=== PATIENT | male | born 1940 | race Caucasian/White ===

== ENCOUNTER 2017-07-23 08:51 | Inpatient (IN) | payer OTHER ==
[~2017-07-23] VITALS: Ht 180.3 cm; Wt 86.3 kg
[~2017-07-23 08:51] MED LIST: DOXY100C2 PO
[2017-07-23] MEDS ORDERED: SODIUM CHLORIDE FLUSH 10ML SYR IVF ONE (09:30)
[2017-07-23] MEDS ORDERED: DEXAMETHASONE 4 MG/ML, 5ML ONE (09:44)
[2017-07-23] MEDS ORDERED: DIPHENHYDRAMINE 50 MG/ML, 1ML ONE (09:44)
[2017-07-23 09:51] LABS: HEMATOCRIT 44.5 % (39.2-51.8); WHITE BLOOD COUNT 13.5 x10^3/uL (3.4-10)
[2017-07-23] MEDS ORDERED: DEXAMETHASONE 4 MG/ML, 1ML IVPush ONE (10:00)
[2017-07-23] MEDS ORDERED: DIPHENHYDRAMINE 50 MG/ML, 1ML IVPush ONE (10:00)
[2017-07-23 10:01] LABS: ASPARTATE AMINO TRANSFERASE 27 U/L (15-37); BLOOD UREA NITROGEN 15 mg/dL (7-18)
[2017-07-23 10:12] LABS: PATH.CAST-FLAG NOT PRESENT; SPERM-FLAG NOT PRESENT; SRC-FLAG NOT PRESENT; XTAL-FLAG NOT PRESENT; YLC-FLAG NOT PRESENT
[2017-07-23] MEDS ORDERED: HYDROmorphone 1 MG/ML, 1ML ONE (12:12)
[2017-07-23 12:16] LABS: IS PT STATUS REG ER OR PRE ER? YES
[2017-07-23] MEDS ORDERED: HYDROmorphone 1 MG/ML, 1ML IVPush ONE (12:30)
[2017-07-23] MEDS ORDERED: DIPHENHYDRAMINE 25 MG CAPSULE PO PRN (13:00)
[2017-07-23] MEDS ORDERED: HEPARIN 5,000 UNITS/ML, 1ML ONE (13:31)
[2017-07-23] MEDS: HEPARIN 5,000 UNITS/ML, 1ML SQ SCH ×2 (13:34→22:29)
[2017-07-23] MEDS: MORPHINE SULFATE 4 MG/ML, 1ML IVPush PRN ×3 (15:29→22:30)
[2017-07-23 15:30] VITALS: BP 152/80
[2017-07-23 19:45] VITALS: BP 157/80
[2017-07-23] MEDS ORDERED: DOXYCYCLINE 100MG TABLET PO SCH (21:00)
[2017-07-23] MEDS: NEUTRA PHOS K 250 MG TABLET PO SCH (22:29)
[2017-07-23] MEDS: DIPHENHYDRAMINE 50 MG CAPSULE PO PRN (22:29)
[2017-07-24 04:20] VITALS: BP 130/78
[2017-07-24] MEDS: MORPHINE SULFATE 4 MG/ML, 1ML IVPush PRN (05:32)
[2017-07-24] MEDS: HEPARIN 5,000 UNITS/ML, 1ML SQ SCH ×3 (05:32→22:06)
[2017-07-24] MEDS: HYDROCORTISONE CRM 2.5%, 20GM TP PRN ×3 (05:48→13:42)
[2017-07-24 06:38] LABS: HEMATOCRIT 41.9 % (39.2-51.8); HEMOGLOBIN 14.3 g/dL (13.7-18.0); WHITE BLOOD COUNT 11.6 x10^3/uL (3.4-10)
[2017-07-24 07:32] LABS: BLOOD UREA NITROGEN 18 mg/dL (7-18)
[2017-07-24 07:43] LABS: HIV 1&2 ANTIBODY SCREEN Nonreactive (Nonreactive); HIV-1 p24 ANTIGEN Nonreactive (Nonreactive)
[2017-07-24 07:45] VITALS: BP 151/67
[2017-07-24] MEDS: DOXYCYCLINE 100MG TABLET HOMEMEDPO SCH ×2 (08:59→21:00)
[2017-07-24] MEDS: NEUTRA PHOS K 250 MG TABLET PO SCH (08:59)
[2017-07-24] MEDS ORDERED: HYDROCORTISONE OINT 2.5%, 20GM TP PRN (14:00)
[2017-07-24 14:30] VITALS: BP 144/77
[2017-07-24 15:49] LABS: ANA SCREEN NEGATIVE (Negative)
[2017-07-24] MEDS: DIPHENHYDRAMINE 25 MG CAPSULE PO PRN (18:13)
[2017-07-24 19:56] VITALS: BP 159/83
[2017-07-24] MEDS: DIPHENHYDRAMINE 50 MG CAPSULE PO PRN (22:07)
[2017-07-25 03:13] VITALS: BP 124/71
[2017-07-25] MEDS: HEPARIN 5,000 UNITS/ML, 1ML SQ SCH ×3 (05:11→22:01)
[2017-07-25 05:23] LABS: HEMATOCRIT 35.9 % (39.2-51.8); HEMOGLOBIN 12.1 g/dL (13.7-18.0); WHITE BLOOD COUNT 8.6 x10^3/uL (3.4-10)
[2017-07-25 08:30] VITALS: BP 152/84
[2017-07-25] MEDS: DOXYCYCLINE 100MG TABLET HOMEMEDPO SCH (08:55)
[2017-07-25] MEDS: DIPHENHYDRAMINE 25 MG CAPSULE PO PRN (08:55)
[2017-07-25] MEDS ORDERED: HYDROCORTISONE CRM 2.5%, 20GM TP PRN ×2 (09:00)
[2017-07-25 14:30] VITALS: BP 150/78
[2017-07-25] MEDS: FAMOTIDINE 40 MG TABLET PO SCH ×2 (18:46→21:00)
[2017-07-25 19:57] VITALS: BP 158/79
[2017-07-25] MEDS: DIPHENHYDRAMINE 50 MG CAPSULE PO PRN (22:00)
[2017-07-26 03:19] VITALS: BP 118/66
[2017-07-26] MEDS: HEPARIN 5,000 UNITS/ML, 1ML SQ SCH ×3 (06:24→21:28)
[2017-07-26 08:11] VITALS: BP 150/79
[2017-07-26] MEDS: FAMOTIDINE 40 MG TABLET PO SCH ×2 (08:34→21:28)
[2017-07-26] MEDS: DIPHENHYDRAMINE 25 MG CAPSULE PO PRN ×2 (08:36→16:20)
[2017-07-26] MEDS ORDERED: TRIAMCINOLONE CRM 0.1%, 15GM TP SCH ×3 (11:00→21:00)
[2017-07-26 14:30] VITALS: BP_SYST 141; BP_SYST 154; BP_DIAS 82; BP_DIAS 92
[2017-07-26 20:10] VITALS: BP 141/70
[2017-07-26] MEDS: DIPHENHYDRAMINE 50 MG CAPSULE PO PRN (21:28)
[2017-07-27] MEDS ORDERED: HYDROCORTISONE CRM 2.5%, 20GM TP SCH (04:00)
[2017-07-27] MEDS: HYDROCORTISONE CRM 2.5%, 20GM TP SCH ×2 (04:44→16:48)
[2017-07-27 04:45] VITALS: BP 137/70
[2017-07-27] MEDS: HEPARIN 5,000 UNITS/ML, 1ML SQ SCH ×3 (06:31→21:57)
[2017-07-27] MEDS: FAMOTIDINE 40 MG TABLET PO SCH ×2 (07:56→21:56)
[2017-07-27 08:09] VITALS: BP 139/66
[2017-07-27 14:00] VITALS: BP 141/82
[2017-07-27] MEDS: LORATADINE 10 MG TABLET PO SCH (14:40)
[2017-07-27] MEDS: DIPHENHYDRAMINE 25 MG CAPSULE PO PRN (15:58)
[2017-07-27 19:38] VITALS: BP 141/63
[2017-07-27] MEDS: DIPHENHYDRAMINE 50 MG CAPSULE PO PRN (21:57)
[2017-07-28 04:14] VITALS: BP 147/72
[2017-07-28] MEDS: HYDROCORTISONE CRM 2.5%, 20GM TP SCH ×2 (04:18→09:00)
[2017-07-28] MEDS: HEPARIN 5,000 UNITS/ML, 1ML SQ SCH ×2 (05:56→14:00)
[2017-07-28] MEDS: DIPHENHYDRAMINE 25 MG CAPSULE PO PRN ×2 (05:56→12:20)
[2017-07-28 08:58] VITALS: BP 162/66
[2017-07-28] MEDS ORDERED: TRIAMCINOLONE CRM 0.1%, 454GMS TP SCH (09:00)
[2017-07-28] MEDS: LORATADINE 10 MG TABLET PO SCH (09:09)
[2017-07-28] MEDS: FAMOTIDINE 40 MG TABLET PO SCH (09:09)
[2017-07-28 15:57] VITALS: BP 150/75
[2017-07-28] MEDS ORDERED: DIPH50CA PO (16:20)
[2017-07-28] MEDS ORDERED: LORA10TA75 PO (16:20)
[2017-07-28] MEDS ORDERED: CEPH-368 PO (16:20)
[2017-07-28] MEDS ORDERED: PRED20TA PO (16:20)
[2017-07-28] MEDS ORDERED: TRIA15CR3 TP (16:20)
[2017-07-28] MEDS ORDERED: DIPHENHYDRAMINE 50 MG CAPSULE PO ONE (16:30)
== END 2017-07-28 19:56 | disposition home or self-care (01) | DRG 607 ==
LOC: ED 10:41 → EDIP 12:02 → 3NE 14:18
PROVIDERS: ADMIT Hospitalist; ATTEND Family Medicine
DX: L25.9 Unspecified contact dermatitis, unspecified cause (principal); D75.89 Other specified diseases of blood and blood-forming organs; E83.39 Other disorders of phosphorus metabolism; R21 Rash and other nonspecific skin eruption; Z85.46 Personal history of malignant neoplasm of prostate; L40.9 Psoriasis, unspecified; Z79.2 Long term (current) use of antibiotics; Z92.3 Personal history of irradiation; Z91.09 Other allergy status, other than to drugs and biological substances
CPT/HCPCS: 36415; 71010; 76700; 76770; 80048; 80053; 81001; 82570; 82607; 82746; 83735; 83880; 84100; 84156; 84439; 84443; 84484; 85025; 85610; 85651; 86038; 86256; 86703; 87086; 87205; 87899; 93005; 93306; 96374; 96375; J1100; J1170; J1644; G0435; J1200; J7512; Q0163